=== PATIENT | female | born 1960 | race Caucasian/White ===

== ENCOUNTER 2017-01-16 11:05 | Inpatient (IN) | payer MEDICAID ==
[2017-01-16] MEDS ORDERED: ROCEPHIN VIAL 1 GM 1 GM in NS 50 ML IV + SPIKE MINIBAG* 50 ML IV SCH (12:00)
[2017-01-16] MEDS ORDERED: LEVAQUIN PREMIX IV 500 MG 500 MG/100 ML BAG IV SCH (12:00)
--- NOTE | 2017-01-16 12:20 | DR.H&P ---
H&P - History & Physical for Day of: H&P Date: 01/16/17 - Chief Complaint Chief Complaint: NV, ABD PAIN - Allergies Allergies/Adverse Reactions: Allergies Allergy/AdvReac Type Severity Reaction Status Date / Time Acetaminophen Allergy Verified 01/16/17 12:17 Ciprofloxacin [From Cipro] Allergy Verified 01/16/17 12:17 Doxycycline Allergy Verified 01/16/17 12:17 Levofloxacin [From Levaquin] Allergy Verified 01/16/17 12:17 Meperidine [From Demerol HCl] Allergy Verified 01/16/17 12:17 - History of Present Illness History of Present Illness: THE PATIENT IS A 56 YEAR OLD FEMALE WHO IS A PATIENT OF MY PRIVATE PRACTICE. THE PATIENT HAS PRESENTED TO [facility] ED MULTIPLE TIMES OVER THE PAST WEEK WITH COMPLAINTS OF NAUSEA, VOMITING, AND SHORTNESS OF BREATH. THE PATIENT WAS NOTED ON CXR TO HAVE CONSOLIDATION IN THE RLL. THE PATIENT HAS FAILED OUTPATIENT THEREAPY. SUBSEQUENTLY, THE PATIENT WILL BE ADMITTED TO [facility] FOR FURTHER EVALUATION AND MANAGMENT. - Past Medical History Past Medical History: GERD, Hypertension - Past Surgical History Surgical History: Unknown - Social History Does patient currently use any type of tobacco product: No Have you used tobacco products in the last 12 months: No Type of Tobacco Use: None Does any household member use tobacco: No Alcohol Use: None - Review of Systems Constitutional: See HPI, Weakness Eyes: No Symptoms Reported ENT: No Symptoms Reported Respiratory: Shortness of Breath Cardiovascular: No Symptoms Reported Gastrointestinal: See HPI, Nausea, Vomiting, Abdominal Pain Genitourinary: No Symptoms Reported Musculoskeletal: No Symptoms Reported Skin: No Symptoms Reported Eyes: Normal Ear: Normal Nose: Normal Throat: Normal Respiratory: RLL Diminished Cardiovascular: Normal : Normal Auscultation: Bowel Sounds: Normal Palpation: Normal Tenderness: Diffuse Skin: Normal Musculoskeletal: Normal Psychiatric: Normal Mood Description: Calm Affect: Normal Speech Pattern: Clear, Appropriate - Assessment/Plan (1) Nausea & vomiting Qualifiers: Vomiting type: V Vomiting Intractability: intractable Status: Acute Plan: PROTONIX 40 IV Q12H (2) Dehydration Status: Acute Plan: IVF (3) Chronic pain syndrome Status: Acute Plan: MORPHINE 2MG Q4H (4) Right lower lobe pneumonia Qualifiers: Pneumonia type: P Aspiration pneumonia type: A Status: Acute Plan: IV ANTIBIOTICS. JET NEB TX. IV STERIODS
[2017-01-16] MEDS: PROVENTIL NEB TX 0.083% 2.5MG/ 3ML NEB SCH ×2 (17:59→18:00)
[2017-01-16 18:54] LABS: BASOPHILS # (AUTO) 0.2 X10^3/uL (0.0-0.1); BASOPHILS % (AUTO) 1.1 % (0.2-1.0); HEMATOCRIT 35.2 % (36.0-47.0); HEMOGLOBIN 11.4 g/dL (12.0-16.0); LYMPHOCYTES # (AUTO) 1.4 X10^3/uL (1.3-2.9); LYMPHOCYTES % (AUTO) 8.1 % (21.0-51.0); MEAN CORPUSCULAR HEMOGLOBIN 27.7 pg (27.0-34.0); MEAN CORPUSCULAR HGB CONC 32.2 g/dL (33.0-35.0); MEAN PLATELET VOLUME 7.9 fL (7.4-11.0); MONOCYTES # (AUTO) 0.5 x10^3/uL (0.3-0.8); MONOCYTES % (AUTO) 2.9 % (0.0-13.0); NEUTROPHILS # (AUTO) 15.5 x10^3/uL (2.2-4.8); NEUTROPHILS % (AUTO) 87.9 % (42.0-75.0); PLATELET COUNT 381 X10^3/uL (150.0-450.0); RED BLOOD COUNT 4.09 X10^6/uL (3.5-5.4); RED CELL DISTRIBUTION WIDTH 15.3 % (11.6-16.5); WHITE BLOOD COUNT 17.6 X10^3/uL (3.6-10.0)
--- NOTE | 2017-01-16 19:26 | RAD ---
CHEST RADIOGRAPHS PA AND LATERAL VIEWS CLINICAL HISTORY: 56-year-old female with history of left lower lobe pneumonia and chest pain. COMPARISON: None. FINDINGS: The cardiopericardial silhouette is borderline enlarged. Airspace opacity with air bronch ograms within the left lower lobe with chronic appearing prominence of the interstitium and no other focal consolidation, effusion or pneumothorax. The lungs are well inflated. Pulmonary vascularity i s normal. Imaged osseous structures are intact. Soft tissues are unremarkable. IMPRESSION: Findings consistent with left lower lobe pneumonia. Reported By:
[2017-01-16 19:28] LABS: ALANINE AMINOTRANSFERASE 25 Units/L (12-78); ALBUMIN 3.2 g/dL (3.4-5.0); ALKALINE PHOSPHATASE 79 Units/L (46-116); AMYLASE 32 Units/L (25-115); ASPARTATE AMINO TRANSFERASE 23 Units/L (15-37); BLOOD UREA NITROGEN 33 mg/dL (7-18); CALCIUM 9.3 mg/dL (8.5-10.1); CARBON DIOXIDE 34.1 mmol/L (21-32); CHLORIDE 103 mmol/L (98-107); COR CA(FOR HYPOALB) 9.9 mg/dL (8.5-10.1); CREATININE 1.26 mg/dL (0.55-1.02); GLUCOSE 74 mg/dL (65-99); LIPASE 40 Units/L (73-393); SODIUM 143 mmol/L (136-145); TOTAL PROTEIN 7.5 g/dL (6.4-8.2); eGFR BLACK RACES 56 (>60); eGFR NON BLACK RACES 46 (>60)
[2017-01-16] MEDS: NS 1000 ML 1,000 ML IV SCH (19:51)
[2017-01-16] MEDS: MORPHINE SULFATE INJ 2 MG IVP PRN (20:29)
[2017-01-16 22:22] VITALS: BMI 19.6
[2017-01-16] MEDS ORDERED: NS 50 ML IV 50 ML IV ONE (23:27)
[2017-01-16] MEDS ORDERED: ROCEPHIN VIAL 1 GM ONE (23:27)
[2017-01-16] MEDS: ROCEPHIN VIAL 1 GM 1 GM in NS 50 ML IV + SPIKE MINIBAG* 50 ML IV SCH (23:35)
[2017-01-17] MEDS: TYLENOL SUPP 650 MG PR PRN ×2 (00:06→16:53)
[2017-01-17] MEDS: PROVENTIL NEB TX 0.083% 2.5MG/ 3ML NEB SCH ×5 (00:53→20:39)
[2017-01-17] MEDS: ZOFRAN INJ 4 MG VIAL IVP PRN ×4 (02:13→21:10)
--- NOTE | 2017-01-17 02:13 | CT ---
CT abdomen and pelvis without contrast Indication: Abdominal pain, nausea, vomiting, history of throat cancer Comparison: None Technique: CT images of the abdomen and pelvis were obtained without contrast. Automatic exposure co ntrol was utilized. Findings: There is dense consolidation with air bronchograms in the basilar left lower lobe with pat annemarie less severe right lower lobe airspace disease. No aggressive osseous lesions. Previous cholecystectomy. Within the limitations of a noncontrast study, the liver, spleen, stomach, duodenum, pancreas, and kidneys demonstrate no acute abnormality. The adrenal glands are within nor mal limits. There is moderate colonic stool burden, suggesting constipation. No significant bowel th ickening or dilatation is observed. The appendix and uterus are absent. The urinary bladder and rect um are unremarkable. No significant free fluid or adenopathy identified. There is aortic atheroscler osis without aneurysm. Impression: 1. Bilateral lower lobe pneumonia, worse on the left. 2. No acute process identified within the abdomen or pelvis. Moderate colonic stool, suggesting cons tipation. Previous appendectomy. Reported By:
[2017-01-17] MEDS: MORPHINE SULFATE INJ 2 MG IVP PRN ×4 (03:36→21:11)
[2017-01-17 05:13] LABS: BASOPHILS # (AUTO) 0.1 X10^3/uL (0.0-0.1); BASOPHILS % (AUTO) 0.5 % (0.2-1.0); EOSINOPHILS % (AUTO) 0.2 % (0.9-2.9); HEMATOCRIT 31.5 % (36.0-47.0); HEMOGLOBIN 10.5 g/dL (12.0-16.0); LYMPHOCYTES # (AUTO) 0.8 X10^3/uL (1.3-2.9); LYMPHOCYTES % (AUTO) 6.3 % (21.0-51.0); MEAN CORPUSCULAR HEMOGLOBIN 28.9 pg (27.0-34.0); MEAN CORPUSCULAR HGB CONC 33.2 g/dL (33.0-35.0); MEAN PLATELET VOLUME 8.2 fL (7.4-11.0); MONOCYTES # (AUTO) 0.5 x10^3/uL (0.3-0.8); MONOCYTES % (AUTO) 3.4 % (0.0-13.0); NEUTROPHILS # (AUTO) 11.8 x10^3/uL (2.2-4.8); NEUTROPHILS % (AUTO) 89.6 % (42.0-75.0); PLATELET COUNT 283 X10^3/uL (150.0-450.0); RED BLOOD COUNT 3.62 X10^6/uL (3.5-5.4); RED CELL DISTRIBUTION WIDTH 15.4 % (11.6-16.5); WHITE BLOOD COUNT 13.2 X10^3/uL (3.6-10.0)
[2017-01-17 05:20] LABS: ALANINE AMINOTRANSFERASE 19 Units/L (12-78); ALBUMIN 2.4 g/dL (3.4-5.0); ALKALINE PHOSPHATASE 60 Units/L (46-116); ASPARTATE AMINO TRANSFERASE 16 Units/L (15-37); BLOOD UREA NITROGEN 29 mg/dL (7-18); CALCIUM 8.5 mg/dL (8.5-10.1); CARBON DIOXIDE 30.4 mmol/L (21-32); CHLORIDE 105 mmol/L (98-107); COR CA(FOR HYPOALB) 9.8 mg/dL (8.5-10.1); CREATININE 0.96 mg/dL (0.55-1.02); SODIUM 143 mmol/L (136-145); TOTAL PROTEIN 5.9 g/dL (6.4-8.2); eGFR BLACK RACES > 60 (>60); eGFR NON BLACK RACES > 60 (>60)
[2017-01-17 05:23] LABS: GLUCOSE 50 mg/dL (65-99)
[2017-01-17] MEDS ORDERED: D50W ABBOJECT SYR IV ONE (05:45)
[2017-01-17] MEDS: NS 1000 ML 1,000 ML IV SCH ×2 (06:03→14:55)
[2017-01-17] MEDS: ROCEPHIN VIAL 1 GM 1 GM in NS 50 ML IV + SPIKE MINIBAG* 50 ML IV SCH (09:07)
[2017-01-17] MEDS ORDERED: NexIUM PO SCH (14:00)
[2017-01-17] MEDS ORDERED: LEVOTHYROXINE SODIUM 200 MCG PO SCH (14:00)
[2017-01-17] MEDS ORDERED: ZOFRAN TAB 4 MG PO PRN (14:00)
[2017-01-17] MEDS ORDERED: NORVASC TAB 2.5 MG ONE (14:18)
[2017-01-17] MEDS: NORVASC TAB 2.5 MG PO SCH (14:22)
[2017-01-17] MEDS ORDERED: PHARMACY CONSULT - DOSE _____ XX SCH (15:00)
[2017-01-17] MEDS ORDERED: MILK OF MAGNESIA PO PRN (18:10)
--- NOTE | 2017-01-17 18:13 | PCM.PROG ---
Progress Note - Progress Note for Day of Date: 01/17/17 - Subjective Subjective: 56 WF ADMITTED ON 01/16 WITH PNEUMONIA AND CO N/V. PT CONTINUES TO CO N/V THIS AM "CANT KEEP ANYTHING DOWN" PT STATES SHE TAKE METHADONE AT HOME AND HAS NOT HAD IN 5 DAYS, THINKS SHE MAY BE WITHDRAWLING. PLAN TO CONTINUE IV ATBX , RESP CARE, SUPPLEMENTAL O2, TRACH CARE, N/V CONTROL, IV HYDRATION PPI THERAPY. RESUME PAIN CONTROL - Past Medical Family Social History Past Med/Fam/Surg Hx: No changes since H&P Allergies: Allergies Azithromycin [From Zithromax] Allergy (Verified 01/17/17 00:32) Ciprofloxacin [From Cipro] Allergy (Verified 01/16/17 12:17) Codeine Allergy (Verified 01/17/17 00:32) Doxycycline Allergy (Verified 01/16/17 12:17) Levofloxacin [From Levaquin] Allergy (Verified 01/16/17 12:17) Meperidine [From Demerol HCl] Allergy (Verified 01/16/17 12:17) Piperacillin [From Zosyn] Allergy (Verified 01/17/17 00:32) Tazobactam [From Zosyn] Allergy (Verified 01/17/17 00:32) Tramadol [From Ultram] Allergy (Verified 01/17/17 00:32) - Review of Systems ROS: No change since H&P - Vital Signs and I&O's Vital Signs: Temperature 99.3 F Pulse Rate [Left Brachial] 74 Pulse Rate 74 Respiratory Rate 12 Blood Pressure [Left Arm] 99/49 O2 Sat by Pulse Oximetry 90 Intake and Output: Intake & Output 01/15/17 01/16/17 01/17/17 01/18/17 11:59 11:59 11:59 11:59 Intake Total 1156 930 Output Total 300 600 Balance 856 330 - Physical Exam Eyes: Normal Ear: Normal Nose: Normal Throat: Normal Respiratory: Wheezes, Rhonchi, OTHER (PT HAS TRACH) Cardiovascular: Normal : Normal Auscultation: Bowel Sounds: Normal Tenderness: Diffuse Skin: Normal Musculoskeletal: Back:Thoracic, Back:Lumbar Psychiatric: Normal Mood Description: Calm Affect: Normal Speech Pattern: Clear, Appropriate - Laboratory and Diagnostics Result Diagrams: 01/17/17 04:40 01/17/17 04:40 Labs: Laboratory WBC 13.2 X10^3/uL (3.6-10.0) H 01/17/17 04:40 RBC 3.62 X10^6/uL (3.5-5.4) 01/17/17 04:40 Hgb 10.5 g/dL (12.0-16.0) L 01/17/17 04:40 Hct 31.5 % (36.0-47.0) L 01/17/17 04:40 MCV 87.0 fL (80.0-100.0) 01/17/17 04:40 MCH 28.9 pg (27.0-34.0) 01/17/17 04:40 MCHC 33.2 g/dL (33.0-35.0) 01/17/17 04:40 RDW 15.4 % (11.6-16.5) 01/17/17 04:40 Plt Count 283 X10^3/uL (150.0-450.0) 01/17/17 04:40 MPV 8.2 fL (7.4-11.0) 01/17/17 04:40 Neut % 89.6 % (42.0-75.0) H 01/17/17 04:40 Lymph % 6.3 % (21.0-51.0) L 01/17/17 04:40 [place] % 3.4 % (0.0-13.0) 01/17/17 04:40 Eos % 0.2 % (0.9-2.9) L 01/17/17 04:40 Baso % 0.5 % (0.2-1.0) 01/17/17 04:40 Neut # 11.8 x10^3/uL (2.2-4.8) H 01/17/17 04:40 Lymph # 0.8 X10^3/uL (1.3-2.9) L 01/17/17 04:40 [place] # 0.5 x10^3/uL (0.3-0.8) 01/17/17 04:40 Eos # 0.0 x10^3/uL (0.0-0.2) 01/17/17 04:40 Baso # 0.1 X10^3/uL (0.0-0.1) 01/17/17 04:40 Absolute Nucleated RBC 0.0 /100WBC 01/17/17 04:40 Sodium 143 mmol/L (136-145) 01/17/17 04:40 Corrected Sodium TNP 01/17/17 04:40 Potassium 3.9 mmol/L (3.5-5.1) 01/17/17 04:40 Chloride 105 mmol/L (98-107) 01/17/17 04:40 Carbon Dioxide 30.4 mmol/L (21-32) 01/17/17 04:40 BUN 29 mg/dL (7-18) H 01/17/17 04:40 Creatinine 0.96 mg/dL (0.55-1.02) 01/17/17 04:40 Est GFR (MDRD) Af Amer > 60 (>60) 01/17/17 04:40 Est GFR (MDRD) Non-Af > 60 (>60) 01/17/17 04:40 Glucose 50 mg/dL (65-99) L 01/17/17 04:40 Calcium 8.5 mg/dL (8.5-10.1) 01/17/17 04:40 Corrected Calcium 9.8 mg/dL (8.5-10.1) 01/17/17 04:40 Total Bilirubin 0.40 mg/dL (0.2-1.0) 01/17/17 04:40 AST 16 Units/L (15-37) 01/17/17 04:40 ALT 19 Units/L (12-78) 01/17/17 04:40 Alkaline Phosphatase 60 Units/L (46-116) 01/17/17 04:40 Total Protein 5.9 g/dL (6.4-8.2) L 01/17/17 04:40 Albumin 2.4 g/dL (3.4-5.0) L 01/17/17 04:40 Globulin 3.5 g/dL (2.5-4.5) 01/17/17 04:40 Albumin/Globulin Ratio 0.7 Ratio (1.1-2.1) L 01/17/17 04:40 Amylase 32 Units/L (25-115) 01/16/17 18:47 Lipase 40 Units/L (73-393) L 01/16/17 18:47 - Plan (1) Pneumonia Status: Acute Qualifiers: Pneumonia type: P Aspiration pneumonia type: A Laterality: bilateral Lung location: L Plan: CULTURES PENDING, PLAN TO CONTINUE IV ATBX. RESP THERAPY, TRACH CARE, SUPPLEMENTAL O2. ENCOURAGE ORAL HYDRATION. PPI FOR GERD (2) GERD (gastroesophageal reflux disease) Status: Acute Qualifiers: Esophagitis presence: E (3) Chronic pain syndrome Status: Acute Plan: MORPHINE 2MG Q4H (4) Dehydration Status: Acute Plan: IVF (5) Nausea & vomiting Status: Acute Qualifiers: Vomiting type: V Vomiting Intractability: intractable Plan: PROTONIX 40 IV Q12H
[2017-01-17] MEDS ORDERED: DIPRIVAN VIAL 20 ML ONE (18:33)
[2017-01-17] MEDS ORDERED: XYLOCAINE 2 % (PLAIN) ONE (18:34)
[2017-01-17] MEDS ORDERED: PROTONIX INJ 40 MG VIAL IVP SCH (19:00)
[2017-01-17] MEDS: PERCOCET TAB 5/325 MG PO PRN (22:59)
[2017-01-18] MEDS ORDERED: DIFLUCAN 200 MG IV PREMIX* 200 MG/100 ML BAG IV ONE (00:32)
[2017-01-18] MEDS: DIFLUCAN 200 MG IV PREMIX* 400 MG/200 ML BAG IV ONE ×2 (00:42→00:45)
[2017-01-18] MEDS: NYSTATIN SUSP MT SCH ×5 (00:42→20:33)
[2017-01-18] MEDS: CARAFATE SUSP 1 GM/10 ML PO SCH ×6 (00:42→20:46)
[2017-01-18] MEDS: PROVENTIL NEB TX 0.083% 2.5MG/ 3ML NEB SCH ×6 (01:15→20:44)
[2017-01-18] MEDS: NS 1000 ML 1,000 ML IV SCH ×3 (05:10→18:46)
[2017-01-18] MEDS: MORPHINE SULFATE INJ 2 MG IVP PRN ×5 (05:20→23:39)
[2017-01-18] MEDS: ZOFRAN INJ 4 MG VIAL IVP PRN ×2 (05:56→20:33)
[2017-01-18 06:23] LABS: ALANINE AMINOTRANSFERASE 14 Units/L (12-78); ALBUMIN 2.4 g/dL (3.4-5.0); ALKALINE PHOSPHATASE 63 Units/L (46-116); ASPARTATE AMINO TRANSFERASE 14 Units/L (15-37); BLOOD UREA NITROGEN 12 mg/dL (7-18); CALCIUM 8.1 mg/dL (8.5-10.1); CARBON DIOXIDE 29.8 mmol/L (21-32); CHLORIDE 107 mmol/L (98-107); COR CA(FOR HYPOALB) 9.4 mg/dL (8.5-10.1); CREATININE 0.73 mg/dL (0.55-1.02); GLUCOSE 76 mg/dL (65-99); SODIUM 143 mmol/L (136-145); TOTAL PROTEIN 6.1 g/dL (6.4-8.2); eGFR BLACK RACES > 60 (>60); eGFR NON BLACK RACES > 60 (>60)
[2017-01-18 06:31] LABS: BASOPHILS # (AUTO) 0.1 X10^3/uL (0.0-0.1); BASOPHILS % (AUTO) 0.9 % (0.2-1.0); EOSINOPHILS # (AUTO) 0.1 x10^3/uL (0.0-0.2); EOSINOPHILS % (AUTO) 0.5 % (0.9-2.9); HEMATOCRIT 31.6 % (36.0-47.0); HEMOGLOBIN 10.2 g/dL (12.0-16.0); LYMPHOCYTES # (AUTO) 0.9 X10^3/uL (1.3-2.9); LYMPHOCYTES % (AUTO) 7.1 % (21.0-51.0); MEAN CORPUSCULAR HEMOGLOBIN 27.6 pg (27.0-34.0); MEAN CORPUSCULAR HGB CONC 32.4 g/dL (33.0-35.0); MEAN CORPUSCULAR VOLUME 85.3 fL (80.0-100.0); MEAN PLATELET VOLUME 8.5 fL (7.4-11.0); MONOCYTES # (AUTO) 0.4 x10^3/uL (0.3-0.8); MONOCYTES % (AUTO) 3.2 % (0.0-13.0); NEUTROPHILS # (AUTO) 10.8 x10^3/uL (2.2-4.8); NEUTROPHILS % (AUTO) 88.3 % (42.0-75.0); PLATELET COUNT 256 X10^3/uL (150.0-450.0); RED CELL DISTRIBUTION WIDTH 15.2 % (11.6-16.5); WHITE BLOOD COUNT 12.3 X10^3/uL (3.6-10.0)
--- NOTE | 2017-01-18 06:40 | RAD ---
HISTORY: Pneumonia, constipation, nausea and vomiting, dehydration and cough. Study: Acute abdominal series with two-view chest Comparison: Chest x-ray done January 16, 2017. CT abdomen done January 16, 2017. Findings: The trachea is midline. The cardiac silhouette is enlarged. Lungs are hyperinflated with increased interstitial markings. Bibasilar foci infiltrate are again seen, little changed from prior studies. No pleural fluid or pneumothorax seen. Osseous structures are intact. Flat plate and upright evalu ation of the abdomen demonstrates a increase in stool present throughout the colon. No bowel obstruc tion or perforation is seen. There is no evidence of free intraperitoneal air or fluid. There are mcconnell rgical clips from cholecystectomy.. No pathological soft tissue mass or calcification can be observ ed. Thoracolumbar scoliosis. IMPRESSION: 1. Mild enlargement of the cardiac silhouette. COPD and bibasilar infiltrates are unchanged from 2016. 2. Abundant stool present throughout the colon. No bowel obstruction or perforation is seen. Reported By:
[2017-01-18] MEDS: SYNTHROID 100 mcg TAB PO SCH (07:42)
[2017-01-18] MEDS ORDERED: NORVASC TAB 2.5 MG ONE (07:55)
[2017-01-18] MEDS: ROCEPHIN VIAL 1 GM 1 GM in NS 50 ML IV + SPIKE MINIBAG* 50 ML IV SCH (08:35)
[2017-01-18] MEDS: PROTONIX INJ 40 MG VIAL IVP SCH ×2 (08:36→20:33)
[2017-01-18] MEDS: NORVASC TAB 2.5 MG PO SCH ×2 (08:37→08:40)
[2017-01-18] MEDS ORDERED: PHENERGAN INJ 25 MG IV PRN (08:44)
[2017-01-18] MEDS: MILK OF MAGNESIA PO SCH (09:16)
[2017-01-18] MEDS ORDERED: DIFLUCAN 200 MG IV PREMIX* 200 MG/100 ML BAG IV SCH (12:00)
[2017-01-18] MEDS ORDERED: DULCOLAX SUPPOSITORY 10 MG RECTAL ONE (13:20)
--- NOTE | 2017-01-18 13:24 | PCM.PROG ---
Progress Note - Progress Note for Day of Date: 01/18/17 - Subjective Subjective: 56 WF ADMITTED ON 01/16 WITH PNEUMONIA. PT CONTINUE TO CO NAUSEA. PT ON ZOFRAN. PT ON PROTONIX BID, HAD EGD PER DR ELY ONE DAY AGO. WILL CONTINUE WITH IV ATBX, RESPT THERAPY, REPEAT AM LABS AND CXR, DULCOLAX SUPP FOR CONSTIPATION - Past Medical Family Social History Past Med/Fam/Surg Hx: No changes since H&P Allergies: Allergies Azithromycin [From Zithromax] Allergy (Verified 01/17/17 00:32) Ciprofloxacin [From Cipro] Allergy (Verified 01/16/17 12:17) Codeine Allergy (Verified 01/17/17 00:32) Doxycycline Allergy (Verified 01/16/17 12:17) Levofloxacin [From Levaquin] Allergy (Verified 01/16/17 12:17) Meperidine [From Demerol HCl] Allergy (Verified 01/16/17 12:17) Piperacillin [From Zosyn] Allergy (Verified 01/17/17 00:32) Tazobactam [From Zosyn] Allergy (Verified 01/17/17 00:32) Tramadol [From Ultram] Allergy (Verified 01/17/17 00:32) - Review of Systems ROS: No change since H&P - Vital Signs and I&O's Vital Signs: Temperature 98.2 F Pulse Rate [Left Brachial] 74 Pulse Rate 67 Respiratory Rate 22 Blood Pressure [Left Arm] 127/95 O2 Sat by Pulse Oximetry 93 Intake and Output: Intake & Output 01/16/17 01/17/17 01/18/17 01/19/17 11:59 11:59 11:59 11:59 Intake Total 1156 2514 Output Total 300 1900 Balance 856 614 - Physical Exam Eyes: Normal Ear: Normal Nose: Normal Throat: Normal Respiratory: Wheezes, Rhonchi, OTHER (PT HAS TRACH) Cardiovascular: Normal : Normal Auscultation: Bowel Sounds: Normal Tenderness: Diffuse Skin: Normal Musculoskeletal: Back:Thoracic, Back:Lumbar Psychiatric: Normal Mood Description: Calm Affect: Normal Speech Pattern: Clear - Laboratory and Diagnostics Result Diagrams: 01/18/17 05:50 01/18/17 05:50 Labs: 01/17/17 18:08 Sputum - Expectorated Sputum Sputum Culture - Preliminary 01/17/17 18:08 Sputum - Expectorated Sputum - Final 01/16/17 23:55 Urine,Clean Catch Urine Culture - Preliminary Laboratory WBC 12.3 X10^3/uL (3.6-10.0) H 01/18/17 05:50 RBC 3.70 X10^6/uL (3.5-5.4) 01/18/17 05:50 Hgb 10.2 g/dL (12.0-16.0) L 01/18/17 05:50 Hct 31.6 % (36.0-47.0) L 01/18/17 05:50 MCV 85.3 fL (80.0-100.0) 01/18/17 05:50 MCH 27.6 pg (27.0-34.0) 01/18/17 05:50 MCHC 32.4 g/dL (33.0-35.0) L 01/18/17 05:50 RDW 15.2 % (11.6-16.5) 01/18/17 05:50 Plt Count 256 X10^3/uL (150.0-450.0) 01/18/17 05:50 MPV 8.5 fL (7.4-11.0) 01/18/17 05:50 Neut % 88.3 % (42.0-75.0) H 01/18/17 05:50 Lymph % 7.1 % (21.0-51.0) L 01/18/17 05:50 [place] % 3.2 % (0.0-13.0) 01/18/17 05:50 Eos % 0.5 % (0.9-2.9) L 01/18/17 05:50 Baso % 0.9 % (0.2-1.0) 01/18/17 05:50 Neut # 10.8 x10^3/uL (2.2-4.8) H 01/18/17 05:50 Lymph # 0.9 X10^3/uL (1.3-2.9) L 01/18/17 05:50 [place] # 0.4 x10^3/uL (0.3-0.8) 01/18/17 05:50 Eos # 0.1 x10^3/uL (0.0-0.2) 01/18/17 05:50 Baso # 0.1 X10^3/uL (0.0-0.1) 01/18/17 05:50 Absolute Nucleated RBC 0.0 /100WBC 01/18/17 05:50 Sodium 143 mmol/L (136-145) 01/18/17 05:50 Corrected Sodium TNP 01/18/17 05:50 Potassium 3.6 mmol/L (3.5-5.1) 01/18/17 05:50 Chloride 107 mmol/L (98-107) 01/18/17 05:50 Carbon Dioxide 29.8 mmol/L (21-32) 01/18/17 05:50 BUN 12 mg/dL (7-18) 01/18/17 05:50 Creatinine 0.73 mg/dL (0.55-1.02) 01/18/17 05:50 Est GFR (MDRD) Af Amer > 60 (>60) 01/18/17 05:50 Est GFR (MDRD) Non-Af > 60 (>60) 01/18/17 05:50 Glucose 76 mg/dL (65-99) 01/18/17 05:50 Calcium 8.1 mg/dL (8.5-10.1) L 01/18/17 05:50 Corrected Calcium 9.4 mg/dL (8.5-10.1) 01/18/17 05:50 Total Bilirubin 0.40 mg/dL (0.2-1.0) 01/18/17 05:50 AST 14 Units/L (15-37) L 01/18/17 05:50 ALT 14 Units/L (12-78) 01/18/17 05:50 Alkaline Phosphatase 63 Units/L (46-116) 01/18/17 05:50 Total Protein 6.1 g/dL (6.4-8.2) L 01/18/17 05:50 Albumin 2.4 g/dL (3.4-5.0) L 01/18/17 05:50 Globulin 3.7 g/dL (2.5-4.5) 01/18/17 05:50 Albumin/Globulin Ratio 0.6 Ratio (1.1-2.1) L 01/18/17 05:50 Amylase 32 Units/L (25-115) 01/16/17 18:47 Lipase 40 Units/L (73-393) L 01/16/17 18:47 Tissue Pathology To follow 01/17/17 18:51 - Plan (1) Pneumonia Status: Acute Qualifiers: Pneumonia type: P Aspiration pneumonia type: A Laterality: bilateral Lung location: L Plan: CONTINUE IV ATBX. RESP THERAPY, TRACH CARE, SUPPLEMENTAL O2. ENCOURAGE ORAL HYDRATION. PPI FOR GERD (2) GERD (gastroesophageal reflux disease) Status: Acute Qualifiers: Esophagitis presence: E Plan: NAUSEA CONTROL, IV PPI (3) Chronic pain syndrome Status: Acute Plan: MORPHINE 2MG Q4H (4) Dehydration Status: Acute Plan: IVF (5) Nausea & vomiting Status: Acute Qualifiers: Vomiting type: V Vomiting Intractability: intractable Plan: PROTONIX 40 IV Q12H
[2017-01-18] MEDS: DIFLUCAN 200 MG IV PREMIX* 200 MG/100 ML BAG IV SCH (13:28)
[2017-01-18] MEDS: COLACE CAP 100 MG PO SCH (20:37)
[2017-01-18] MEDS: TYLENOL 325 MG TAB PO PRN (21:49)
[2017-01-19] MEDS: PROVENTIL NEB TX 0.083% 2.5MG/ 3ML NEB SCH ×6 (01:33→20:45)
[2017-01-19] MEDS: NS 1000 ML 1,000 ML IV SCH ×3 (03:37→21:12)
[2017-01-19] MEDS: PERCOCET TAB 5/325 MG PO PRN (03:38)
[2017-01-19] MEDS: MORPHINE SULFATE INJ 2 MG IVP PRN (06:02)
[2017-01-19] MEDS: CARAFATE SUSP 1 GM/10 ML PO SCH ×4 (06:04→21:11)
[2017-01-19] MEDS ORDERED: NORVASC TAB 2.5 MG ONE (08:53)
[2017-01-19] MEDS: NYSTATIN SUSP MT SCH ×4 (09:01→21:11)
[2017-01-19] MEDS: PROTONIX INJ 40 MG VIAL IVP SCH ×2 (09:02→21:11)
[2017-01-19] MEDS: MILK OF MAGNESIA PO SCH (09:02)
[2017-01-19] MEDS: SYNTHROID 100 mcg TAB PO SCH (09:02)
[2017-01-19] MEDS: ROCEPHIN VIAL 1 GM 1 GM in NS 50 ML IV + SPIKE MINIBAG* 50 ML IV SCH (09:03)
[2017-01-19] MEDS: DIFLUCAN 200 MG IV PREMIX* 200 MG/100 ML BAG IV SCH (09:03)
[2017-01-19] MEDS: NORVASC TAB 2.5 MG PO SCH (09:03)
--- NOTE | 2017-01-19 09:32 | RAD ---
HISTORY: Shortness of breath. Study: Chest one view Comparison: January 18, 2017. Findings: The trachea is midline. The cardiac silhouette is enlarged. There is central pulmonary vascular con gestion. There is slight prominence of pulmonary interstitial markings in both lungs. There are und erlying changes of COPD. The bony thorax is unremarkable. IMPRESSION: 1. Cardiomegaly with central pulmonary vascular congestion, and mild interstitial edema. 2. COPD. Reported By:
[2017-01-19 14:04] LABS: BASOPHILS # (AUTO) 0.1 X10^3/uL (0.0-0.1); BASOPHILS % (AUTO) 0.7 % (0.2-1.0); EOSINOPHILS # (AUTO) 0.1 x10^3/uL (0.0-0.2); EOSINOPHILS % (AUTO) 0.5 % (0.9-2.9); HEMATOCRIT 37.6 % (36.0-47.0); HEMOGLOBIN 12.1 g/dL (12.0-16.0); LYMPHOCYTES # (AUTO) 0.9 X10^3/uL (1.3-2.9); LYMPHOCYTES % (AUTO) 7.4 % (21.0-51.0); MEAN CORPUSCULAR HEMOGLOBIN 27.6 pg (27.0-34.0); MEAN CORPUSCULAR HGB CONC 32.3 g/dL (33.0-35.0); MEAN CORPUSCULAR VOLUME 85.5 fL (80.0-100.0); MEAN PLATELET VOLUME 8.1 fL (7.4-11.0); MONOCYTES # (AUTO) 0.5 x10^3/uL (0.3-0.8); NEUTROPHILS % (AUTO) 87.4 % (42.0-75.0); PLATELET COUNT 422 X10^3/uL (150.0-450.0); RED CELL DISTRIBUTION WIDTH 15.5 % (11.6-16.5); WHITE BLOOD COUNT 12.6 X10^3/uL (3.6-10.0)
[2017-01-19] MEDS: TYLENOL 325 MG TAB PO PRN (14:14)
[2017-01-19 14:37] LABS: ALANINE AMINOTRANSFERASE 18 Units/L (12-78); ALBUMIN 2.8 g/dL (3.4-5.0); ALKALINE PHOSPHATASE 73 Units/L (46-116); ASPARTATE AMINO TRANSFERASE 15 Units/L (15-37); BLOOD UREA NITROGEN 6 mg/dL (7-18); CALCIUM 8.7 mg/dL (8.5-10.1); CARBON DIOXIDE 33.7 mmol/L (21-32); CHLORIDE 104 mmol/L (98-107); COR CA(FOR HYPOALB) 9.7 mg/dL (8.5-10.1); CREATININE 0.85 mg/dL (0.55-1.02); GLUCOSE 85 mg/dL (65-99); SODIUM 143 mmol/L (136-145); TOTAL PROTEIN 7.1 g/dL (6.4-8.2); eGFR BLACK RACES > 60 (>60); eGFR NON BLACK RACES > 60 (>60)
[2017-01-19] MEDS: ZOFRAN INJ 4 MG VIAL IVP PRN (17:23)
[2017-01-19] MEDS ORDERED: K-RIDER 10 MEQ/NS 100 ML 10 MEQ/100 ML BAG IV PRN (18:50)
[2017-01-19] MEDS ORDERED: POTASSIUM CHLORIDE LIQ 20 MEQ UDC PO PRN (18:50)
[2017-01-19] MEDS ORDERED: K-LYTE EFFERVESCENT ONE (18:55)
[2017-01-19] MEDS: K-LYTE EFFERVESCENT PO PRN (19:06)
[2017-01-19] MEDS: K-DUR TAB 20 MEQ PO PRN (19:07)
[2017-01-19] MEDS: COLACE CAP 100 MG PO SCH (21:12)
[2017-01-20] MEDS: PROVENTIL NEB TX 0.083% 2.5MG/ 3ML NEB SCH ×6 (00:45→21:26)
[2017-01-20] MEDS: RESTORIL CAP 15 MG PO PRN ×2 (01:40→22:11)
[2017-01-20] MEDS: NS 1000 ML 1,000 ML IV SCH ×2 (04:05→15:58)
[2017-01-20] MEDS: CARAFATE SUSP 1 GM/10 ML PO SCH ×4 (06:16→22:10)
[2017-01-20] MEDS: SYNTHROID 100 mcg TAB PO SCH (06:16)
[2017-01-20 08:10] LABS: BASOPHILS # (AUTO) 0.1 X10^3/uL (0.0-0.1); BASOPHILS % (AUTO) 1.1 % (0.2-1.0); EOSINOPHILS # (AUTO) 0.1 x10^3/uL (0.0-0.2); EOSINOPHILS % (AUTO) 1.2 % (0.9-2.9); HEMATOCRIT 35.8 % (36.0-47.0); HEMOGLOBIN 11.6 g/dL (12.0-16.0); LYMPHOCYTES # (AUTO) 1.2 X10^3/uL (1.3-2.9); LYMPHOCYTES % (AUTO) 11.4 % (21.0-51.0); MEAN CORPUSCULAR HEMOGLOBIN 28.2 pg (27.0-34.0); MEAN CORPUSCULAR HGB CONC 32.5 g/dL (33.0-35.0); MEAN CORPUSCULAR VOLUME 86.9 fL (80.0-100.0); MEAN PLATELET VOLUME 8.1 fL (7.4-11.0); MONOCYTES # (AUTO) 0.5 x10^3/uL (0.3-0.8); MONOCYTES % (AUTO) 4.4 % (0.0-13.0); NEUTROPHILS # (AUTO) 8.6 x10^3/uL (2.2-4.8); NEUTROPHILS % (AUTO) 81.9 % (42.0-75.0); PLATELET COUNT 384 X10^3/uL (150.0-450.0); RED BLOOD COUNT 4.12 X10^6/uL (3.5-5.4); RED CELL DISTRIBUTION WIDTH 15.6 % (11.6-16.5); WHITE BLOOD COUNT 10.5 X10^3/uL (3.6-10.0)
[2017-01-20] MEDS ORDERED: NORVASC TAB 2.5 MG ONE (08:15)
[2017-01-20 08:19] LABS: ALANINE AMINOTRANSFERASE 16 Units/L (12-78); ALBUMIN 2.7 g/dL (3.4-5.0); ALKALINE PHOSPHATASE 72 Units/L (46-116); ASPARTATE AMINO TRANSFERASE 15 Units/L (15-37); BLOOD UREA NITROGEN 5 mg/dL (7-18); CALCIUM 8.6 mg/dL (8.5-10.1); CHLORIDE 106 mmol/L (98-107); COR CA(FOR HYPOALB) 9.6 mg/dL (8.5-10.1); CREATININE 0.91 mg/dL (0.55-1.02); GLUCOSE 100 mg/dL (65-99); SODIUM 143 mmol/L (136-145); TOTAL PROTEIN 6.8 g/dL (6.4-8.2); eGFR BLACK RACES > 60 (>60); eGFR NON BLACK RACES > 60 (>60)
[2017-01-20] MEDS: NORVASC TAB 2.5 MG PO SCH (09:24)
[2017-01-20] MEDS: DIFLUCAN 200 MG IV PREMIX* 200 MG/100 ML BAG IV SCH (09:24)
[2017-01-20] MEDS: ROCEPHIN VIAL 1 GM 1 GM in NS 50 ML IV + SPIKE MINIBAG* 50 ML IV SCH (09:24)
[2017-01-20] MEDS: NYSTATIN SUSP MT SCH ×4 (09:24→22:09)
[2017-01-20] MEDS: PROTONIX INJ 40 MG VIAL IVP SCH (09:24)
[2017-01-20] MEDS: MILK OF MAGNESIA PO SCH ×2 (09:25→09:26)
[2017-01-20] MEDS: PERCOCET TAB 5/325 MG PO PRN (09:38)
[2017-01-20] MEDS: K-LYTE EFFERVESCENT PO PRN (09:39)
[2017-01-20] MEDS: ZOFRAN INJ 4 MG VIAL IVP PRN (09:39)
[2017-01-20] MEDS: TYLENOL 325 MG TAB PO PRN (17:34)
--- NOTE | 2017-01-20 20:38 | RAD ---
HISTORY: Respiratory failure Study: Portable chest Comparison: 01/19/2017 Findings: The heart is mildly enlarged but unchanged. The pulmonary vessels are engorged and ill-defined centr ally and more prominent . There are hazy perihilar and bibasilar interstitial and airspace opacities which have increased . There is mild blunting of left costophrenic angle which is more apparent. Th ere is asymmetric pleural thickening along the left apex which is better visualized. IMPRESSION: Stable cardiomegaly with worsening pulmonary edema and increasing perihilar and bibasilar opacities . Questionable small left pleural effusion which is more apparent. Asymmetric focal pleural thickening along the left apex. Recommend followup to assure stability. Reported By:
[2017-01-20 21:56] LABS: CKMB % 1.9 % (<4); CREATINE KINASE 74 Units/L (26-192); CREATINE KINASE MB 1.4 ng/mL (0-4.0); TROPONIN I < 0.02 ng/mL (0-1.5)
[2017-01-20] MEDS ORDERED: CARAFATE ONE (22:05)
[2017-01-20] MEDS: PROTONIX TAB 40 MG PO SCH (22:10)
[2017-01-20] MEDS: COLACE CAP 100 MG PO SCH (22:11)
[2017-01-20] MEDS ORDERED: LASIX IVP ONE (22:49)
[2017-01-21] MEDS: TYLENOL 325 MG TAB PO PRN ×2 (01:20→12:00)
[2017-01-21] MEDS: PROVENTIL NEB TX 0.083% 2.5MG/ 3ML NEB SCH ×6 (01:25→20:52)
[2017-01-21 02:55] LABS: BILIRUBIN,URINE NEGATIVE (NEGATIVE); BLOOD/HEMOGLOBIN,URINE NEGATIVE (NEGATIVE); GLUCOSE, URINE NEGATIVE (NEGATIVE); KETONES,URINE NEGATIVE (NEGATIVE); LEUKOCYTE ESTERASE ,URINE NEGATIVE (NEGATIVE); NITRITES,URINE NEGATIVE (NEGATIVE); PROTEIN,URINE NEGATIVE (NEGATIVE); UROBILINOGEN,URINE NORMAL (NORMAL)
[2017-01-21 03:02] LABS: APPEARANCE,URINE CLEAR (CLEAR); BACTERIA,URINE NEGATIVE /HPF (NEGATIVE); COLOR,URINE PALE YELLOW (YELLOW); RBC,URINE 0-3 /HPF (NEGATIVE); SQUAMOUS EPITHELIAL CELL,UR RARE /HPF (NEGATIVE)
[2017-01-21] MEDS ORDERED: CARAFATE ONE (06:11)
[2017-01-21] MEDS: SYNTHROID 100 mcg TAB PO SCH (06:14)
[2017-01-21] MEDS: PERCOCET TAB 5/325 MG PO PRN ×2 (06:15→17:52)
[2017-01-21 06:18] LABS: ALBUMIN 2.7 g/dL (3.4-5.0); ALKALINE PHOSPHATASE 69 Units/L (46-116); ASPARTATE AMINO TRANSFERASE 16 Units/L (15-37); BLOOD UREA NITROGEN 6 mg/dL (7-18); CALCIUM 8.6 mg/dL (8.5-10.1); CARBON DIOXIDE 35.2 mmol/L (21-32); CHLORIDE 102 mmol/L (98-107); COR CA(FOR HYPOALB) 9.6 mg/dL (8.5-10.1); CREATININE 0.82 mg/dL (0.55-1.02); GLUCOSE 60 mg/dL (65-99); SODIUM 144 mmol/L (136-145); TOTAL PROTEIN 6.5 g/dL (6.4-8.2); eGFR BLACK RACES > 60 (>60); eGFR NON BLACK RACES > 60 (>60)
[2017-01-21 06:28] LABS: ALANINE AMINOTRANSFERASE 17 Units/L (12-78)
[2017-01-21 06:45] LABS: BASOPHILS # (AUTO) 0.1 X10^3/uL (0.0-0.1); BASOPHILS % (AUTO) 1.3 % (0.2-1.0); EOSINOPHILS % (AUTO) 0.3 % (0.9-2.9); HEMATOCRIT 32.6 % (36.0-47.0); HEMOGLOBIN 10.7 g/dL (12.0-16.0); LYMPHOCYTES # (AUTO) 1.3 X10^3/uL (1.3-2.9); LYMPHOCYTES % (AUTO) 16.7 % (21.0-51.0); MEAN CORPUSCULAR HEMOGLOBIN 28.1 pg (27.0-34.0); MEAN CORPUSCULAR HGB CONC 32.9 g/dL (33.0-35.0); MEAN CORPUSCULAR VOLUME 85.4 fL (80.0-100.0); MEAN PLATELET VOLUME 8.6 fL (7.4-11.0); MONOCYTES # (AUTO) 0.4 x10^3/uL (0.3-0.8); NEUTROPHILS # (AUTO) 5.9 x10^3/uL (2.2-4.8); NEUTROPHILS % (AUTO) 76.7 % (42.0-75.0); PLATELET COUNT 270 X10^3/uL (150.0-450.0); RED BLOOD COUNT 3.82 X10^6/uL (3.5-5.4); RED CELL DISTRIBUTION WIDTH 15.5 % (11.6-16.5)
[2017-01-21 07:04] LABS: WHITE BLOOD COUNT 8.2 X10^3/uL (3.6-10.0)
[2017-01-21 07:05] LABS: PLATELET MORPHOLOGY COMMENT NORMAL (NORMAL)
--- NOTE | 2017-01-21 07:09 | RAD ---
HISTORY: Shortness of breath Study: Chest one view Comparison: January 20, 2017, January 19, 2017 Findings: The patient is rotated to the left. The heart remains enlarged. Mild pulmonary venous congestion pre sent. Increasing density is present in the right lung base which could be due to developing atelecta sis, infiltrate, or both. Persistent increased density remains in the retrocardiac area left lower l obe also possibly due to atelectasis, infiltrate, effusion or a combination. The bony thorax is unre markable. IMPRESSION: Cardiomegaly with pulmonary venous congestion Increasing density in both lung bases which could be on the basis of developing atelectasis, infiltr ate or both. Reported By:
[2017-01-21] MEDS: CARAFATE SUSP 1 GM/10 ML PO SCH ×4 (07:14→20:35)
[2017-01-21] MEDS ORDERED: NORVASC TAB 2.5 MG ONE (08:24)
[2017-01-21] MEDS: MILK OF MAGNESIA PO SCH (09:10)
[2017-01-21] MEDS: NORVASC TAB 2.5 MG PO SCH ×2 (09:11→10:24)
[2017-01-21] MEDS: NYSTATIN SUSP MT SCH ×4 (09:11→20:36)
[2017-01-21] MEDS: PROTONIX TAB 40 MG PO SCH ×2 (09:11→20:35)
[2017-01-21] MEDS: ROBITUSSIN DM PO SCH ×4 (09:12→20:36)
[2017-01-21] MEDS: ZOFRAN INJ 4 MG VIAL IVP PRN (13:15)
[2017-01-21] MEDS: ROCEPHIN VIAL 1 GM 1 GM in NS 50 ML IV + SPIKE MINIBAG* 50 ML IV SCH (17:10)
--- NOTE | 2017-01-21 17:49 | PCM.PROG ---
Progress Note - Progress Note for Day of Date: 01/21/17 - Subjective Subjective: 56 WF ADMITTED ON 01/16 WITH PNEUMONIA. PT CONTINUE TO CO NAUSEA. PT ON ZOFRAN. PT ON PROTONIX BID, HAD EGD PER DR ELY. PT HAD INCREASED LOWER LUNG INFILTRATES ON CXR, PT STATES SHE IS READY TO GO HOME. PT STARTED ON BACTRIM PO, IV ROCEPHIN CONTINUED. REPEAT AM LABS AND CXR, CONTINUE RESP THERAPY - Past Medical Family Social History Past Med/Fam/Surg Hx: No changes since H&P Allergies: Allergies Azithromycin [From Zithromax] Allergy (Verified 01/17/17 00:32) Ciprofloxacin [From Cipro] Allergy (Verified 01/16/17 12:17) Codeine Allergy (Verified 01/17/17 00:32) Doxycycline Allergy (Verified 01/16/17 12:17) Levofloxacin [From Levaquin] Allergy (Verified 01/16/17 12:17) Meperidine [From Demerol HCl] Allergy (Verified 01/16/17 12:17) Piperacillin [From Zosyn] Allergy (Verified 01/17/17 00:32) Tazobactam [From Zosyn] Allergy (Verified 01/17/17 00:32) Tramadol [From Ultram] Allergy (Verified 01/17/17 00:32) - Review of Systems ROS: No change since H&P - Vital Signs and I&O's Vital Signs: Temperature 98.6 F Pulse Rate [Left Brachial] 79 Pulse Rate 73 Respiratory Rate 19 Blood Pressure [Left Arm] 95/63 O2 Sat by Pulse Oximetry 98 Intake and Output: Intake & Output 01/19/17 01/20/17 01/21/17 01/22/17 11:59 11:59 11:59 11:59 Intake Total 1924 4198 3769 500 Output Total 1550 3250 550 Balance 374 4198 519 -50 - Physical Exam Eyes: Normal Ear: Normal Nose: Normal Throat: Normal Respiratory: Wheezes, Rhonchi, OTHER (PT HAS TRACH) Cardiovascular: Normal : Normal Auscultation: Bowel Sounds: Normal Tenderness: Diffuse Skin: Normal Musculoskeletal: Back:Thoracic, Back:Lumbar Psychiatric: Normal Mood Description: Calm Affect: Normal Speech Pattern: Clear - Laboratory and Diagnostics Result Diagrams: 01/21/17 04:30 01/21/17 04:30 Labs: 01/16/17 23:55 Urine,Clean Catch Urine Culture - Final 01/17/17 18:08 Sputum - Expectorated Sputum Sputum Culture - Final 01/17/17 18:08 Sputum - Expectorated Sputum - Final 01/17/17 18:03 Blood Blood Culture - Preliminary Laboratory WBC 8.2 X10^3/uL (3.6-10.0) 01/21/17 04:30 RBC 3.82 X10^6/uL (3.5-5.4) 01/21/17 04:30 Hgb 10.7 g/dL (12.0-16.0) L 01/21/17 04:30 Hct 32.6 % (36.0-47.0) L 01/21/17 04:30 MCV 85.4 fL (80.0-100.0) 01/21/17 04:30 MCH 28.1 pg (27.0-34.0) 01/21/17 04:30 MCHC 32.9 g/dL (33.0-35.0) L 01/21/17 04:30 RDW 15.5 % (11.6-16.5) 01/21/17 04:30 Plt Count 270 X10^3/uL (150.0-450.0) 01/21/17 04:30 Plt Count Comment Adequate (ADEQUATE) 01/21/17 04:30 MPV 8.6 fL (7.4-11.0) 01/21/17 04:30 Neut % 76.7 % (42.0-75.0) H 01/21/17 04:30 Lymph % 16.7 % (21.0-51.0) L 01/21/17 04:30 [place] % 5.0 % (0.0-13.0) 01/21/17 04:30 Eos % 0.3 % (0.9-2.9) L 01/21/17 04:30 Baso % 1.3 % (0.2-1.0) H 01/21/17 04:30 Neut # 5.9 x10^3/uL (2.2-4.8) H 01/21/17 04:30 Lymph # 1.3 X10^3/uL (1.3-2.9) 01/21/17 04:30 [place] # 0.4 x10^3/uL (0.3-0.8) 01/21/17 04:30 Eos # 0.0 x10^3/uL (0.0-0.2) 01/21/17 04:30 Baso # 0.1 X10^3/uL (0.0-0.1) 01/21/17 04:30 Absolute Nucleated RBC 0.0 /100WBC 01/21/17 04:30 Plt Morphology Comment Normal (NORMAL) 01/21/17 04:30 RBC Morphology Normal (NORMAL) 01/21/17 04:30 Sodium 144 mmol/L (136-145) 01/21/17 04:30 Corrected Sodium TNP 01/21/17 04:30 Potassium 3.3 mmol/L (3.5-5.1) L 01/21/17 04:30 Chloride 102 mmol/L (98-107) 01/21/17 04:30 Carbon Dioxide 35.2 mmol/L (21-32) H 01/21/17 04:30 BUN 6 mg/dL (7-18) L 01/21/17 04:30 Creatinine 0.82 mg/dL (0.55-1.02) 01/21/17 04:30 Est GFR (MDRD) Af Amer > 60 (>60) 01/21/17 04:30 Est GFR (MDRD) Non-Af > 60 (>60) 01/21/17 04:30 Glucose 60 mg/dL (65-99) L 01/21/17 04:30 Calcium 8.6 mg/dL (8.5-10.1) 01/21/17 04:30 Corrected Calcium 9.6 mg/dL (8.5-10.1) 01/21/17 04:30 Total Bilirubin 0.30 mg/dL (0.2-1.0) 01/21/17 04:30 AST 16 Units/L (15-37) 01/21/17 04:30 ALT 17 Units/L (12-78) 01/21/17 04:30 Alkaline Phosphatase 69 Units/L (46-116) 01/21/17 04:30 Creatine Kinase 74 Units/L (26-192) 01/20/17 21:20 CK-MB (CK-2) 1.4 ng/mL (0-4.0) 01/20/17 21:20 CK/CKMB % Calc 1.9 % (<4) 01/20/17 21:20 Troponin I < 0.02 ng/mL (0-1.5) 01/20/17 21:20 Total Protein 6.5 g/dL (6.4-8.2) 01/21/17 04:30 Albumin 2.7 g/dL (3.4-5.0) L 01/21/17 04:30 Globulin 3.8 g/dL (2.5-4.5) 01/21/17 04:30 Albumin/Globulin Ratio 0.7 Ratio (1.1-2.1) L 01/21/17 04:30 Amylase 32 Units/L (25-115) 01/16/17 18:47 Lipase 40 Units/L (73-393) L 01/16/17 18:47 Specimen Type Catherized urine 01/21/17 02:15 Urine Color Pale yellow (YELLOW) 01/21/17 02:15 Urine Appearance Clear (CLEAR) 01/21/17 02:15 Urine pH 7.0 (5.0 - 8.0) 01/21/17 02:15 Ur Specific [place] 1.005 (1.000-1.030) 01/21/17 02:15 Urine Protein Negative (NEGATIVE) 01/21/17 02:15 Urine Glucose (UA) Negative (NEGATIVE) 01/21/17 02:15 Urine Ketones Negative (NEGATIVE) 01/21/17 02:15 Urine Occult Blood Negative (NEGATIVE) 01/21/17 02:15 Urine Nitrite Negative (NEGATIVE) 01/21/17 02:15 Urine Bilirubin Negative (NEGATIVE) 01/21/17 02:15 Urine Urobilinogen Normal (NORMAL) 01/21/17 02:15 Ur Leukocyte Esterase Negative (NEGATIVE) 01/21/17 02:15 Urine RBC 0-3 /HPF (NEGATIVE) 01/21/17 02:15 Urine WBC 0-3 /HPF (NEGATIVE) 01/21/17 02:15 Ur Squamous Epith Cells Rare /HPF (NEGATIVE) 01/21/17 02:15 Urine Bacteria Negative /HPF (NEGATIVE) 01/21/17 02:15 Ur Culture Indicated? No/not indicated 01/21/17 02:15 Stool Description 25g,hard,dark green 01/18/17 16:02 Stl Occult Blood (IFOB) Positive (NEGATIVE) A 01/18/17 16:02 HIV-1 Ab Confirm (Blot) TNP 01/18/17 05:50 HIV 1&2 Antibody Screen Negative (Negative) 01/18/17 05:50 Tissue Pathology To follow 01/17/17 18:51 - Plan (1) Pneumonia Status: Acute Qualifiers: Pneumonia type: P Aspiration pneumonia type: A Laterality: bilateral Lung location: L Plan: CONTINUE IV ATBX, PO BACTRIM. RESP THERAPY, TRACH CARE, SUPPLEMENTAL O2. ENCOURAGE ORAL HYDRATION. PPI FOR GERD (2) GERD (gastroesophageal reflux disease) Status: Acute Qualifiers: Esophagitis presence: E Plan: NAUSEA CONTROL, IV PPI (3) Chronic pain syndrome Status: Acute Plan: MORPHINE 2MG Q4H (4) Dehydration Status: Acute Plan: IVF (5) Nausea & vomiting Status: Acute Qualifiers: Vomiting type: V Vomiting Intractability: intractable Plan: PROTONIX 40 IV Q12H
[2017-01-21] MEDS: COLACE CAP 100 MG PO SCH (20:35)
[2017-01-21] MEDS: BACTRIM DS TAB PO SCH (20:35)
[2017-01-21] MEDS: PATIENT'S HOME MEDICATION PO SCH (20:36)
[2017-01-22] MEDS: PROVENTIL NEB TX 0.083% 2.5MG/ 3ML NEB SCH ×4 (01:03→12:09)
[2017-01-22] MEDS: ZOFRAN INJ 4 MG VIAL IVP PRN (04:58)
[2017-01-22 05:55] LABS: BASOPHILS % (AUTO) 0.5 % (0.2-1.0); EOSINOPHILS % (AUTO) 0.5 % (0.9-2.9); HEMATOCRIT 32.7 % (36.0-47.0); HEMOGLOBIN 10.4 g/dL (12.0-16.0); LYMPHOCYTES % (AUTO) 11.2 % (21.0-51.0); MEAN CORPUSCULAR HEMOGLOBIN 27.4 pg (27.0-34.0); MEAN CORPUSCULAR HGB CONC 31.8 g/dL (33.0-35.0); MEAN CORPUSCULAR VOLUME 85.9 fL (80.0-100.0); MEAN PLATELET VOLUME 8.5 fL (7.4-11.0); MONOCYTES # (AUTO) 0.3 x10^3/uL (0.3-0.8); MONOCYTES % (AUTO) 3.9 % (0.0-13.0); NEUTROPHILS # (AUTO) 7.2 x10^3/uL (2.2-4.8); NEUTROPHILS % (AUTO) 83.9 % (42.0-75.0); PLATELET COUNT 307 X10^3/uL (150.0-450.0); RED CELL DISTRIBUTION WIDTH 15.5 % (11.6-16.5); WHITE BLOOD COUNT 8.5 X10^3/uL (3.6-10.0)
--- NOTE | 2017-01-22 06:03 | RAD ---
HISTORY: Shortness of breath Study: Chest one view Comparison: January 21, 2017 Findings: The patient is rotated to the left. The heart is enlarged. No congestive heart failure is noted. The upper lung friend remain clear. Increased density is present in both lung bases left greater than r ight likely due to infiltrates with some associated atelectasis. A left pleural effusion may also be present. The bony thorax is unremarkable. IMPRESSION: Cardiomegaly without congestive heart failure No change right basilar lung infiltrate and associated volume loss. Left lower lobe infiltrate and atelectasis unchanged Reported By:
[2017-01-22] MEDS: CARAFATE SUSP 1 GM/10 ML PO SCH ×2 (06:06→11:44)
[2017-01-22] MEDS: SYNTHROID 100 mcg TAB PO SCH (06:07)
[2017-01-22 06:31] LABS: ALANINE AMINOTRANSFERASE 14 Units/L (12-78); ALBUMIN 2.4 g/dL (3.4-5.0); ALKALINE PHOSPHATASE 69 Units/L (46-116); ASPARTATE AMINO TRANSFERASE 13 Units/L (15-37); BLOOD UREA NITROGEN 8 mg/dL (7-18); CALCIUM 8.5 mg/dL (8.5-10.1); CARBON DIOXIDE 37.4 mmol/L (21-32); CHLORIDE 106 mmol/L (98-107); COR CA(FOR HYPOALB) 9.8 mg/dL (8.5-10.1); GLUCOSE 106 mg/dL (65-99); SODIUM 145 mmol/L (136-145); TOTAL PROTEIN 6.1 g/dL (6.4-8.2); eGFR BLACK RACES > 60 (>60); eGFR NON BLACK RACES > 60 (>60)
[2017-01-22] MEDS ORDERED: NORVASC TAB 2.5 MG ONE (07:48)
[2017-01-22] MEDS: ROCEPHIN VIAL 1 GM 1 GM in NS 50 ML IV + SPIKE MINIBAG* 50 ML IV SCH (08:29)
[2017-01-22] MEDS: MILK OF MAGNESIA PO SCH (08:29)
[2017-01-22] MEDS: NYSTATIN SUSP MT SCH (08:29)
[2017-01-22] MEDS: ROBITUSSIN DM PO SCH (08:29)
[2017-01-22] MEDS: PROTONIX TAB 40 MG PO SCH (08:30)
[2017-01-22] MEDS: NORVASC TAB 2.5 MG PO SCH (08:30)
[2017-01-22] MEDS: K-DUR TAB 20 MEQ PO PRN (08:30)
[2017-01-22] MEDS: BACTRIM DS TAB PO SCH (08:30)
[2017-01-22] MEDS: PATIENT'S HOME MEDICATION PO SCH (08:31)
[2017-01-22] MEDS ORDERED: LASIX IVP ONE (11:07)
[2017-01-22] MEDS ORDERED: TYLENOL ELIXIR 325 MG UDC ONE (11:38)
[2017-01-22] MEDS ORDERED: TYLENOL ELIXIR 325 MG UDC PO PRN (11:43)
[2017-01-22] MEDS ORDERED: K-DUR TAB 20 MEQ PO SCH (12:00)
[2017-01-22 12:11] VITALS: BP 98/56
== END 2017-01-22 12:20 | disposition home or self-care (01) | DRG 194 ==
LOC: ICU 11:05 → OBSVTOIN 18:05
PROVIDERS: ADMIT Internal Medicine; ATTEND Internal Medicine
PROC: 0DB68ZX Excision of Stomach, Via Natural or Artificial Opening Endoscopic, Diagnostic (ICD-10-PCS; principal; 2017-01-18)
DX: J18.1 Lobar pneumonia, unspecified organism (principal); R10.84 Generalized abdominal pain; R11.2 Nausea with vomiting, unspecified; E86.0 Dehydration; R06.02 Shortness of breath; K21.9 Gastro-esophageal reflux disease without esophagitis; I10 Essential (primary) hypertension; G89.4 Chronic pain syndrome; K29.00 Acute gastritis without bleeding; B37.81 Candidal esophagitis; K44.9 Diaphragmatic hernia without obstruction or gangrene
CPT/HCPCS: 36415; 71010; 71020; 74022; 74176; 80053; 81001; 82150; 82270; 82550; 82553; 83690; 84132; 84484; 85025; 86701; 87040; 87070; 87086; 87205; 93005; 93010; 94640; A4216; A4222; C9113; A4217; G0378; J0696; J1450; J1940; J2001; J2270; J2405; J2550; J3490; J7613

== ENCOUNTER 2017-03-01 22:18 | Observation (INO) | payer MEDICAID ==
[2017-03-01] MEDS ORDERED: NS 1000 ML 1,000 ML IV ONE (22:44)
--- NOTE | 2017-03-01 22:47 | DR.GENAD ---
HPI - PCP Primary Care Physician: JHOANA - Complaint/Symptoms Chief Complaint Doctors Comments: Spouse reports that patient has had diarrhea and vomiting for three days and is not tolerating anything today. Denies fever. She is s/p throat cancer with stoma. Chief Complaint:: FAMILY MEMBER STATES PT HAS HAD N/V/D X 3 DAYS AND IS NOW DEHYDRATED. - Source History Provided: Family Member - Mode of Arrival Mode of Arrival: Wheelchair - Timing Onset of Chief Complaint: 02/26/17 PMH - PMH Past Medical History: Yes Past Medical History: GERD, Hypertension Past Medical History Comment: CANCER Past Surgical History: Yes Surgical History: Appendectomy, Cholecystectomy, Hysterectomy, Tonsillectomy, Other - Family History History of Family Medical Conditions: No - Social History Alcohol Use: None Do you use any recreational Drugs:: No Lives With: Family Lives Where: Home - infectious screening In the last 2 months have you had wt loss of >10#?: NO Have you had fever, night sweats or hemotysis?: No Have you traveled outside the country in the last 6 months?: No Isolation: Standard ROS - Review of Systems Eyes: No Symptoms Reported ENTM: No Symptoms Reported Respiratoy: No Symptoms Reported Cardiovascular: No Symptoms Reported Gastrointestinal/Abdominal: No Symptoms Reported Genitourinary: No Symptoms Reported Neurological: No Symptoms Reported Musculoskeletal: No Symptoms Reported Integumentary: No Symptoms Reported Hematologic/Lymphatic: No Symptoms Reported Endocrine: No Symptoms Reported Psychiatric: No Symptoms Reported All Other Systems: Reviewed and Negative PE - Vital Signs Vitals: Temperature 98.5 F Pulse Rate [Apical] 58 Pulse Rate 67 Respiratory Rate 15 Blood Pressure [Left Arm] 106/71 Blood Pressure 75/48 O2 Sat by Pulse Oximetry 95 - General Limitations: No Limitations General Appearance: Alert, In No Apparent Distress, Cachectic - Head Head Exam: Normal Inspection, Atraumatic - Eyes Eye exam: Normal Appearance, PERRL, EOMI - ENT ENT Exam: Normal Exam, Other External Ear Exam: Normal External Inspection TM/Canal Exam: Bilateral Normal Nose Exam: Normal Nose Exam Mouth Exam: Normal Inspection Throat Exam: Normal Inspection - Neck Neck Exam: Other (stoma) - Chest Chest Inspection: Normal Inspection - Respiratory Respiratory Exam: Normal Lung Sounds Bilat Respiratory Exam: Bilateral Clear to Auscultation - Cardiovascular Cardiovascular Exam: Regular Rate, Normal Rhythm - Abdominal Exam Abdominal Exam: Normal Inspection, Normal Bowel Sounds, Hypoactive Bowel Sounds Abdominal Tenderness: Suprapubic - Back Back Exam: Normal Inspection, Full ROM - Neurologic Neurological Exam: Alert, Oriented X3, CN II-XII Intact - Psychiatric Psychiatric Exam: Normal Affect - Skin Skin Exam: Warm, Dry, Intact Course - Treatment Treatment: NS, dialudid 1mg,zofran - Consultation Called: 11:50 (Dr Gomez agreed to admit for further treatment) ROR - Labs Reviewed Result Diagrams: 03/01/17 22:50 03/01/17 22:50 Laboratory: WBC 15.0 X10^3/uL (3.6-10.0) H 03/01/17 22:50 RBC 4.67 X10^6/uL (3.5-5.4) 03/01/17 22:50 Hgb 12.5 g/dL (12.0-16.0) 03/01/17 22:50 Hct 39.0 % (36.0-47.0) 03/01/17 22:50 MCV 83.5 fL (80.0-100.0) 03/01/17 22:50 MCH 26.7 pg (27.0-34.0) L 03/01/17 22:50 MCHC 31.9 g/dL (33.0-35.0) L 03/01/17 22:50 RDW 15.5 % (11.6-16.5) 03/01/17 22:50 Plt Count 277 X10^3/uL (150.0-450.0) 03/01/17 22:50 Plt Count Comment Adequate (ADEQUATE) 03/01/17 22:50 MPV 8.6 fL (7.4-11.0) 03/01/17 22:50 Neut % 92.1 % (42.0-75.0) H 03/01/17 22:50 Lymph % 4.4 % (21.0-51.0) L 03/01/17 22:50 [place] % 3.2 % (0.0-13.0) 03/01/17 22:50 Eos % 0.1 % (0.9-2.9) L 03/01/17 22:50 Baso % 0.2 % (0.2-1.0) 03/01/17 22:50 Neut # 13.8 x10^3/uL (2.2-4.8) H 03/01/17 22:50 Lymph # 0.7 X10^3/uL (1.3-2.9) L 03/01/17 22:50 [place] # 0.5 x10^3/uL (0.3-0.8) 03/01/17 22:50 Eos # 0.0 x10^3/uL (0.0-0.2) 03/01/17 22:50 Baso # 0.0 X10^3/uL (0.0-0.1) 03/01/17 22:50 Absolute Nucleated RBC 0.0 /100WBC 03/01/17 22:50 Total Counted 100 03/01/17 22:50 Neutrophils % (Manual) 79 % (39-76) H 03/01/17 22:50 Band Neutrophils % 11 % (0-10) H 03/01/17 22:50 Lymphocytes % (Manual) 6 % (13-43) L 03/01/17 22:50 Monocytes % (Manual) 4 % (4-9) 03/01/17 22:50 Plt Morphology Comment Normal (NORMAL) 03/01/17 22:50 RBC Morphology Normal (NORMAL) 03/01/17 22:50 Sodium 141 mmol/L (136-145) 03/01/17 22:50 Corrected Sodium TNP 03/01/17 22:50 Potassium 2.6 mmol/L (3.5-5.1) L* 03/01/17 22:50 Chloride 96 mmol/L (98-107) L 03/01/17 22:50 Carbon Dioxide > 45.0 mmol/L (21-32) H* 03/01/17 22:50 BUN 20 mg/dL (7-18) H 03/01/17 22:50 Creatinine 1.41 mg/dL (0.55-1.02) H 03/01/17 22:50 Est GFR (MDRD) Af Amer 49 (>60) L 03/01/17 22:50 Est GFR (MDRD) Non-Af 41 (>60) L 03/01/17 22:50 Glucose 108 mg/dL (65-99) H 03/01/17 22:50 Calcium 9.0 mg/dL (8.5-10.1) 03/01/17 22:50 Corrected Calcium 9.8 mg/dL (8.5-10.1) 03/01/17 22:50 Total Bilirubin 0.40 mg/dL (0.2-1.0) 03/01/17 22:50 AST 15 Units/L (15-37) 03/01/17 22:50 ALT 10 Units/L (12-78) L 03/01/17 22:50 Alkaline Phosphatase 94 Units/L (46-116) 03/01/17 22:50 Creatine Kinase 28 Units/L (26-192) 03/01/17 22:50 CK-MB (CK-2) < 1.0 ng/mL (0-4.0) 03/01/17 22:50 CK/CKMB % Calc 3.6 % (<4) 03/01/17 22:50 Troponin I < 0.02 ng/mL (0-1.5) 03/01/17 22:50 Total Protein 7.9 g/dL (6.4-8.2) 03/01/17 22:50 Albumin 3.0 g/dL (3.4-5.0) L 03/01/17 22:50 Globulin 4.9 g/dL (2.5-4.5) H 03/01/17 22:50 Albumin/Globulin Ratio 0.6 Ratio (1.1-2.1) L 03/01/17 22:50 - XRAY XRAY Interpreted by: Radiologist (Chest: cardiomegaly) - EKG Compared to prior EKG Dated: 01/20/17 (no change) - Diagnosis Discharge Problem: Dehydration, Hypokalemia, Metabolic alkalosis, Gastroenteritis, Hypovolemia - Discharge Plan Condition: Stable - Follow ups/Referrals Follow ups/Referrals: KENDALL ELY [Primary Care Provider] - 3 days - Instructions
[2017-03-01] MEDS ORDERED: NS 1000 ML 1,000 ML ONE (22:51)
[2017-03-01 22:58] LABS: BASOPHILS % (AUTO) 0.2 % (0.2-1.0); EOSINOPHILS % (AUTO) 0.1 % (0.9-2.9); HEMOGLOBIN 12.5 g/dL (12.0-16.0); LYMPHOCYTES # (AUTO) 0.7 X10^3/uL (1.3-2.9); LYMPHOCYTES % (AUTO) 4.4 % (21.0-51.0); MEAN CORPUSCULAR HEMOGLOBIN 26.7 pg (27.0-34.0); MEAN CORPUSCULAR HGB CONC 31.9 g/dL (33.0-35.0); MEAN CORPUSCULAR VOLUME 83.5 fL (80.0-100.0); MEAN PLATELET VOLUME 8.6 fL (7.4-11.0); MONOCYTES # (AUTO) 0.5 x10^3/uL (0.3-0.8); MONOCYTES % (AUTO) 3.2 % (0.0-13.0); NEUTROPHILS # (AUTO) 13.8 x10^3/uL (2.2-4.8); NEUTROPHILS % (AUTO) 92.1 % (42.0-75.0); PLATELET COUNT 277 X10^3/uL (150.0-450.0); RED BLOOD COUNT 4.67 X10^6/uL (3.5-5.4); RED CELL DISTRIBUTION WIDTH 15.5 % (11.6-16.5)
[2017-03-01 23:03] LABS: BLOOD UREA NITROGEN 20 mg/dL (7-18); CHLORIDE 96 mmol/L (98-107); CREATININE 1.41 mg/dL (0.55-1.02); GLUCOSE 108 mg/dL (65-99); SODIUM 141 mmol/L (136-145); eGFR BLACK RACES 49 (>60); eGFR NON BLACK RACES 41 (>60)
[2017-03-01 23:08] LABS: ALANINE AMINOTRANSFERASE 10 Units/L (12-78); ALKALINE PHOSPHATASE 94 Units/L (46-116); ASPARTATE AMINO TRANSFERASE 15 Units/L (15-37); BAND NEUTROPHILS % 11 % (0-10); COR CA(FOR HYPOALB) 9.8 mg/dL (8.5-10.1); TOTAL PROTEIN 7.9 g/dL (6.4-8.2)
[2017-03-01 23:09] LABS: PLATELET MORPHOLOGY COMMENT NORMAL (NORMAL)
[2017-03-01 23:11] LABS: CARBON DIOXIDE > 45.0 mmol/L (21-32)
--- NOTE | 2017-03-01 23:14 | RAD ---
EXAM: Chest X-ray INDICATION: Hypotensive COMPARISION: Prior exam from January 22, 2017 TECHNIQUE: PA, single view FINDINGS: The lungs are clear. The heart is moderately enlarged. No pleural effusion or pneumothorax. The medi astinum is normal. The regional skeleton is intact. IMPRESSION: Cardiomegaly. The remainder of the examination appears unremarkable. Reported By:
[2017-03-01] MEDS ORDERED: DILAUDID INJ IVP ONE (23:17)
[2017-03-01] MEDS ORDERED: DILAUDID INJ ONE (23:18)
[2017-03-01] MEDS ORDERED: BENTYL I.M. INJ 10 MG IM ONE ×2 (23:20→23:24)
[2017-03-01] MEDS ORDERED: SALINE 0.9% 3 ML NEB TX ONE (23:29)
[2017-03-01 23:34] LABS: CKMB % 3.6 % (<4); CREATINE KINASE 28 Units/L (26-192); CREATINE KINASE MB < 1.0 ng/mL (0-4.0); TROPONIN I < 0.02 ng/mL (0-1.5)
[2017-03-01] MEDS ORDERED: ZOFRAN INJ 4 MG VIAL IVP ONE (23:40)
[2017-03-01] MEDS ORDERED: ZOFRAN INJ 4 MG VIAL ONE (23:44)
[2017-03-01] MEDS ORDERED: NS + KCL 40 MEQ/L 1,000 ML IV SCH (23:45)
[2017-03-02] MEDS ORDERED: NS 1000 ML 1,000 ML ONE (00:34)
[2017-03-02] MEDS ORDERED: NS 1000 ML 1,000 ML IV ONE (00:43)
[2017-03-02] MEDS: NS 1000 ML 1,000 ML with POTASSIUM CHLORIDE INJ 20 MEQ VIAL 20 MEQ IV SCH ×6 (01:37→19:01)
[2017-03-02 02:04] VITALS: BMI 17.6
[2017-03-02] MEDS: DILAUDID INJ IVP PRN ×3 (05:37→19:29)
[2017-03-02 06:27] LABS: BILIRUBIN,URINE 1+ (NEGATIVE); BLOOD/HEMOGLOBIN,URINE 1+ (NEGATIVE); GLUCOSE, URINE NEGATIVE (NEGATIVE); KETONES,URINE 1+ (NEGATIVE); LEUKOCYTE ESTERASE ,URINE 2+ (NEGATIVE); NITRITES,URINE NEGATIVE (NEGATIVE); PROTEIN,URINE 2+ (NEGATIVE); UROBILINOGEN,URINE 2+ (NORMAL)
[2017-03-02 06:36] LABS: BASOPHILS # (AUTO) 0.1 X10^3/uL (0.0-0.1); BASOPHILS % (AUTO) 0.6 % (0.2-1.0); EOSINOPHILS % (AUTO) 0.4 % (0.9-2.9); HEMATOCRIT 33.8 % (36.0-47.0); LYMPHOCYTES % (AUTO) 9.5 % (21.0-51.0); MEAN CORPUSCULAR HEMOGLOBIN 27.1 pg (27.0-34.0); MEAN CORPUSCULAR HGB CONC 32.7 g/dL (33.0-35.0); MEAN CORPUSCULAR VOLUME 82.8 fL (80.0-100.0); MONOCYTES # (AUTO) 0.5 x10^3/uL (0.3-0.8); MONOCYTES % (AUTO) 4.5 % (0.0-13.0); NEUTROPHILS # (AUTO) 9.3 x10^3/uL (2.2-4.8); PLATELET COUNT 272 X10^3/uL (150.0-450.0); RED BLOOD COUNT 4.08 X10^6/uL (3.5-5.4); RED CELL DISTRIBUTION WIDTH 15.4 % (11.6-16.5); WHITE BLOOD COUNT 10.9 X10^3/uL (3.6-10.0)
[2017-03-02 06:38] LABS: ALANINE AMINOTRANSFERASE 9 Units/L (12-78); ALBUMIN 2.6 g/dL (3.4-5.0); ALKALINE PHOSPHATASE 96 Units/L (46-116); ASPARTATE AMINO TRANSFERASE 14 Units/L (15-37); BLOOD UREA NITROGEN 18 mg/dL (7-18); CALCIUM 8.1 mg/dL (8.5-10.1); CARBON DIOXIDE 39.9 mmol/L (21-32); CHLORIDE 102 mmol/L (98-107); COR CA(FOR HYPOALB) 9.2 mg/dL (8.5-10.1); CREATININE 1.04 mg/dL (0.55-1.02); GLUCOSE 77 mg/dL (65-99); eGFR BLACK RACES > 60 (>60); eGFR NON BLACK RACES 58 (>60)
[2017-03-02 06:58] LABS: CREATINE KINASE 33 Units/L (26-192); CREATINE KINASE MB < 1.0 ng/mL (0-4.0); TROPONIN I < 0.02 ng/mL (0-1.5)
[2017-03-02 07:01] LABS: APPEARANCE,URINE SLIGHTLY HAZY (CLEAR); COLOR,URINE YELLOW (YELLOW); RBC,URINE RARE /HPF (NEGATIVE)
[2017-03-02 07:02] LABS: AMORPHOUS SEDIMENT,UR 1+ /HPF (NEGATIVE); BACTERIA,URINE TRACE /HPF (NEGATIVE); HYALINE CASTS, URINE MANY /LPF (NEGATIVE); MUCUS,URINE MODERATE /HPF (NEGATIVE); SQUAMOUS EPITHELIAL CELL,UR MODERATE /HPF (NEGATIVE)
[2017-03-02 07:26] LABS: SODIUM 143 mmol/L (136-145)
[2017-03-02] MEDS ORDERED: POTASSIUM CHLORIDE LIQ 20 MEQ UDC PO PRN (07:35)
[2017-03-02] MEDS ORDERED: K-RIDER 10 MEQ/NS 100 ML 10 MEQ/100 ML BAG IV PRN (07:35)
[2017-03-02] MEDS ORDERED: K-LYTE EFFERVESCENT PO PRN (07:35)
[2017-03-02] MEDS: K-DUR TAB 20 MEQ PO PRN ×2 (09:20→15:31)
[2017-03-02] MEDS ORDERED: NS + KCL 20 MEQ/L 1,000 ML IV ONE ×2 (10:04→18:44)
[2017-03-02] MEDS: ZOFRAN INJ 4 MG VIAL IVP PRN ×2 (10:40→19:29)
[2017-03-02] MEDS ORDERED: GLUCOPHAGE PO SCH (17:00)
[2017-03-02] MEDS ORDERED: PERCOCET TAB 5/325 MG PO PRN (19:24)
[2017-03-02] MEDS ORDERED: SNACK - Diabetic Appropriate PO SCH (20:00)
[2017-03-03] MEDS ORDERED: NS + KCL 20 MEQ/L 1,000 ML IV ONE ×2 (02:42→11:13)
[2017-03-03] MEDS: DILAUDID INJ IVP PRN ×3 (03:23→16:29)
[2017-03-03] MEDS: NS 1000 ML 1,000 ML with POTASSIUM CHLORIDE INJ 20 MEQ VIAL 20 MEQ IV SCH ×6 (03:23→16:30)
[2017-03-03] MEDS: ZOFRAN INJ 4 MG VIAL IVP PRN (03:23)
[2017-03-03] MEDS ORDERED: AMARYL TAB 4 MG PO SCH (07:00)
[2017-03-03] MEDS ORDERED: ZOFRAN TAB 4 MG PO PRN (16:04)
[2017-03-03] MEDS ORDERED: LEVOTHYROXINE SODIUM 200 MCG PO SCH (16:15)
[2017-03-03] MEDS ORDERED: NORVASC TAB 2.5 MG ONE (16:23)
[2017-03-03] MEDS ORDERED: PATIENT'S HOME MEDICATION PO SCH (16:30)
[2017-03-03] MEDS ORDERED: NORVASC TAB 2.5 MG PO SCH (17:00)
[2017-03-03] MEDS ORDERED: FLUCONAZOLE 10 MG/ML PO SCH (17:00)
[2017-03-03] MEDS ORDERED: NexIUM PO SCH (17:00)
[2017-03-03 19:28] VITALS: BP 128/94
[2017-03-03] MEDS ORDERED: MILK OF MAGNESIA PO SCH (21:00)
[2017-03-03] MEDS ORDERED: COLACE CAP 100 MG PO SCH (21:00)
[2017-03-04] MEDS ORDERED: SYNTHROID 100 mcg TAB PO SCH (07:00)
== END 2017-03-03 22:05 | disposition home or self-care (01) ==
LOC: ER 22:26 → INTOOBSV 03-02 00:06 → ICU 03-02 00:06
PROVIDERS: ADMIT Internal Medicine; ATTEND Internal Medicine
DX: E86.0 Dehydration (principal); E87.6 Hypokalemia; K52.89 Other specified noninfective gastroenteritis and colitis; R10.84 Generalized abdominal pain; R11.2 Nausea with vomiting, unspecified; R10.13 Epigastric pain; K21.9 Gastro-esophageal reflux disease without esophagitis; I10 Essential (primary) hypertension
CPT/HCPCS: 36415; 71010; 80053; 81001; 82550; 82553; 83735; 84132; 84484; 85025; 87040; 87086; 93005; 93010; 96365; 96367; 96372; 96374; 96375; 99284; A4216; A4222; G0378; J0500; J2405; J3480